=== PATIENT | female | born 1965 | race American Indian/Alaskan Native ===

== ENCOUNTER 2016-11-26 20:13 | Emergency (ER) | payer OTHER ==
[2016-11-26 20:24] VITALS: BP 145/89; PULSE 85; TEMP 97.8
[2016-11-26] MEDS ORDERED: Albuterol-Ipratrop 3 mg / 0.5 (3 ml) UD IH STA ×2 (20:41→23:55)
--- NOTE | 2016-11-26 20:48 | ED PDOC ---
HPI: SOB/CHF/COPD Time Seen by Provider: 11/26/16 20:24 Chief Complaint (Nursing): Shortness Of Breath Chief Complaint (Provider): shortness of breath History Per: Patient History/Exam Limitations: no limitations Onset/Duration Of Symptoms: Days Current Symptoms Are (Timing): Still Present Initiating Event: Out Of Medications Associated Symptoms: Leg/Calf Pain Additional History Per: Patient Additional Complaint(s): 51 y/o female history of anemia, asthma presents with shortness of breath x 1 week. Patient states she was not able to fill her advair disk that she usually uses, notes symptoms worse today. Patient also complaining of cramping with intermittent numbness/tingling to bilateral lower extremities x months, worse x 1 week, right greater than left. Patient states she was told by her PMD she needs to have venous dopplers done because her "homocysteine" blood test was high. Patient also scheduled for EMG. Denies fever, headache, dizziness, chest pain, palpitations, abdominal pain, leg swelling, recent travel, OCP use. Past Medical History Reviewed: Historical Data, Nursing Documentation, Vital Signs Vital Signs: Last Vital Signs Temp 97.8 F 11/26/16 20:17 Pulse 85 11/26/16 20:17 Resp 18 11/26/16 21:59 BP 145/89 11/26/16 20:17 Pulse Ox 100 11/27/16 04:05 - Medical History PMH: Asthma - Surgical History Surgical History: Tonsillectomy - Family History Family History: States: Unknown Family Hx - Social History Drugs: Denies - Home Medications Home Medications: Ambulatory Orders Medication Instructions Recorded Cyclobenzaprine [Cyclobenzaprine 10 mg PO BID PRN #10 tab 11/27/16 HCl] Naproxen [Naprosyn] 500 mg PO Q12 PRN #20 tablet 11/27/16 - Allergies Allergies/Adverse Reactions: Allergies Allergy/AdvReac Type Severity Reaction Status Date / Time No Known Allergies Allergy Verified 11/26/16 20:24 Review of Systems ROS Statement: Except As Marked, All Systems Reviewed And Found Negative Respiratory: Positive for: Shortness of Breath Musculoskeletal: Positive for: Leg Pain Neurological: Positive for: Numbness (bilateral lower extremities) Physical Exam - Reviewed Nursing Documentation Reviewed: Yes Vital Signs Reviewed: Yes - Physical Exam Appears: Positive for: Well, Non-toxic, No Acute Distress Head Exam: Positive for: ATRAUMATIC, NORMAL INSPECTION, NORMOCEPHALIC Skin: Positive for: Normal Color Eye Exam: Positive for: Normal appearance ENT: Positive for: Normal ENT Inspection Cardiovascular/Chest: Positive for: Regular Rate, Rhythm Respiratory: Positive for: Normal Breath Sounds Gastrointestinal/Abdominal: Positive for: Normal Exam Back: Positive for: Normal Inspection Extremity: Positive for: Normal ROM Neurologic/Psych: Positive for: Alert, Oriented - Laboratory Results Result Diagrams: 11/26/16 21:30 11/26/16 21:30 - ECG ECG: Positive for: Viewed By Me (reviewd by ED attending) ECG Rhythm: Positive for: Sinus Rhythm O2 Sat by Pulse Oximetry: 100 - Radiology X-Ray: Viewed By Me (reviewed with ED attending) X-Ray Interpretation: No Acute Disease - Progress ED Course And Treament: labs, ekg, chest xray, venous duplex b/l Patient now requesting to be tested for Cdiff; states she has had this in the past and is still having vomiting and diarrhea daily. Patient states she did not follow up with a chip crusher operator as instructed, but would like the test now just to "rule it out". Of note, patient enters exam room with [employer] food/iced coffee. EXAM: US Duplex Bilateral Lower Extremity Veins CLINICAL HISTORY: 51 years old, female; Pain; Leg, lower; Bilateral; Additional info: Bilateral leg pain TECHNIQUE: Real-time ultrasound scan of the veins of the bilateral lower extremities with color Doppler flow, spectral waveform analysis and compression. EXAM DATE/TIME: 11/26/2016 8:41 PM COMPARISON: AThere are no prior studies for comparison. FINDINGS: Right deep veins: Common femoral, superficial femoral, popliteal and posterior tibial veins were evaluated. All veins examined are compressible. There are no intraluminal filling defects. There is expected blood flow on Doppler imaging. There is change in waveform with augmentation. Left deep veins: Common femoral, superficial femoral, popliteal and posterior tibial veins were evaluated. All veins examined are compressible. There are no intraluminal filling defects. There is expected blood flow on Doppler imaging. There is change in waveform with augmentation. Impression: No deep venous thrombosis in the visualized vascular segments of the lower extremities On re-eval, patient states she is feeling better. Patient evaluated by ED attending Dr. Hernandez, agrees with plan to discharge with outpatient follow up. Patient educated on all findings, copies of testing given to patient and advised neuro/cardio follow up. Patient requesting names of specialists and a primary care doctor; on-call necessary specialists given on discharge papers Advair given. Return to ED for worsening/concerning symptoms. Rx naproxen, flexeril provided. Disposition - Clinical Impression Clinical Impression: Asthma, Paresthesia, Leg pain - Patient ED Disposition Is Patient to be Admitted: No Counseled Patient/Family Regarding: Studies Performed, Diagnosis, Need For Followup, Rx Given - Disposition Referrals: [facility] [Outside] Corby Mtz MD [Staff Provider] - Ildefonso Bauman MD [Staff Provider] - Colby Pedroza MD [Staff Provider] - Disposition: Routine/Home Disposition Time: 02:00 Condition: IMPROVED Additional Instructions: Follow up with primary doctor in 2-3 days. Use asthma medication as directed. Go for test as previously scheduled. Return to ED for worsening/concerning symptoms. Prescriptions: Cyclobenzaprine [Cyclobenzaprine HCl] 10 mg PO BID PRN #10 tab PRN Reason: Muscle Spasm Naproxen [Naprosyn] 500 mg PO Q12 PRN #20 tablet PRN Reason: Pain, Moderate (4-7) Instructions: Asthma (ED), Paresthesia (ED)
[2016-11-26 21:57] LABS: ALB/GLOB RATIO 1.1 (1.0-2.1); ALKALINE PHOSPHATASE 101 U/L (38-126); ALT/SGPT 53 U/L (9-52); AST/SGOT 92 U/L (14-36); BILIRUBIN,TOTAL 0.3 mg/dl (0.2-1.3); BLOOD UREA NITROGEN 7 mg/dl (7-17); CALCIUM 9.7 mg/dL (8.4-10.2); CARBON DIOXIDE 21 mmol/L (22-30); CHLORIDE 106 mmol/L (98-107); GFR AFRICAN-AMERICAN > 60; GLUCOSE,RANDOM 100 mg/dL (65-105); POTASSIUM 3.7 MMOL/L (3.6-5.0); SODIUM 140 mmol/l (132-148); TOTAL PROTEIN 8.2 G/DL (6.3-8.2)
[2016-11-26 22:00] VITALS: RESP 18
[2016-11-26 22:06] LABS: BASO % 0.6 % (0.0-2.0); EOS % 0.4 % (0.0-4.0); HEMATOCRIT 32.5 % (34.0-47.0); LYMPH # 1.1 K/uL (1.0-4.3); LYMPH % 23.8 % (20.0-40.0); MEAN CELL VOLUME 77.7 fl (81.0-99.0); MEAN CORPUSCULAR HEMOGLOBIN 25.3 pg (27.0-31.0); MEAN CORPUSCULAR HGB CONC 32.6 g/dL (33.0-37.0); MEAN PLATELET VOLUME 10.6 fl (7.2-11.7); MONO # 0.4 K/uL (0.0-0.8); MONO % 8.9 % (0.0-10.0); NEUT % 66.3 % (50.0-75.0); NRBC % 0.2 % (0.0-0.0); RED CELL DISTRIBUTION WIDTH 24.3 % (11.5-14.5); WHITE BLOOD COUNT 4.4 K/uL (4.8-10.8)
[2016-11-26 22:15] LABS: PARTIAL THROMBOPLASTIN TIME 25.6 Seconds (25.6-37.1)
[2016-11-26] MEDS ORDERED: Albuterol-Ipratrop 3 mg / 0.5 (3 ml) UD ONE (23:16)
--- NOTE | 2016-11-26 23:35 | US ---
EXAM: US Duplex Bilateral Lower Extremity Veins CLINICAL HISTORY: 51 years old, female; Pain; Leg, lower; Bilateral; Additional info: Bilateral leg pain TECHNIQUE: Real-time ultrasound scan of the veins of the bilateral lower extremities with color Doppler flow, spectral waveform analysis and compression. EXAM DATE/TIME: 11/26/2016 8:41 PM COMPARISON: AThere are no prior studies for comparison. FINDINGS: Right deep veins: Common femoral, superficial femoral, popliteal and posterior tibial veins were evaluated. All veins examined are compressible. There are no intraluminal filling defects. There is expected blood flow on Doppler imaging. There is change in waveform with augmentation. Left deep veins: Common femoral, superficial femoral, popliteal and posterior tibial veins were evaluated. All veins examined are compressible. There are no intraluminal filling defects. There is expected blood flow on Doppler imaging. There is change in waveform with augmentation. Impression: No deep venous thrombosis in the visualized vascular segments of the lower extremities
[2016-11-26 23:37] VITALS: O2SAT 100
[2016-11-26] MEDS ORDERED: Fluticasone-Salmeterol 250-50mcg Diskus IH STA (23:57)
--- NOTE | 2016-11-27 10:08 | RAD ---
HISTORY: sob COMPARISON: No prior. TECHNIQUE: Chest PA and lateral FINDINGS: LUNGS: No active pulmonary disease. PLEURA: No significant pleural effusion identified. No pneumothorax apparent. CARDIOVASCULAR: Normal. OSSEOUS STRUCTURES: No significant abnormalities. VISUALIZED UPPER ABDOMEN: Normal. OTHER FINDINGS: None. IMPRESSION: No active disease.
== END 2016-11-27 02:00 | disposition home or self-care (01) ==
LOC: H.ER 20:13
DX: J45.909 Unspecified asthma, uncomplicated (principal); R20.2 Paresthesia of skin